=== PATIENT | male | born 1955 | race Caucasian/White ===

== ENCOUNTER 2019-05-27 19:12 | Emergency (ER) | payer OTHER, SELFPAY ==
[2019-05-27 19:22] VITALS: BP 155/74; PULSE 59; RESP 16; TEMP 37.4; O2SAT 100
--- NOTE | 2019-05-27 19:23 | ED.GENADULT ---
HPI - General Adult General Chief complaint: Upper Respiratory Infection Stated complaint: Congestion,Cough Time Seen by Provider: 05/27/19 19:27 Source: patient and RN notes reviewed Mode of arrival: ambulatory Limitations: no limitations History of Present Illness HPI narrative: This is a 63 years old male presents to the office for an evaluation of cough for three days. Cough is getting worse and more deep. He also reports cough when he talks or take a deep breathe. He also reported sinus drainage and feverish feeling. Denies diarrhea or vomiting. Denies sick contact. He does not smoke. He supposed to go to [place] this Monday for vacation and would like to make sure he gets better before then. Related Data Home Medications Medication Instructions Recorded Confirmed atorvastatin 40 mg PO DAILY 05/27/19 05/27/19 losartan 100 mg PO DAILY 05/27/19 05/27/19 metoprolol tartrate 25 mg PO DAILY 05/27/19 05/27/19 Allergies Allergy/AdvReac Type Severity Reaction Status Date / Time No Known Allergies Allergy Mild Verified 06/29/15 14:17 Review of Systems Review of Systems: Narrative: CONSTITUTIONAL: Reports feverish feeling; but not temp at home. ENT: Reports head congestion. Denies sore throat, otalgia. CARDIOVASCULAR: Denies chest pain, palpitation, edema. RESPIRATORY: Denies wheezing. Reports dyspnea with cough GASTROINTESTINAL: Denies abdominal pain, nausea, vomiting, diarrhea. GENITOURINARY: Denies urinary symptoms or discharge SKIN: Denies rash MUSCULOSKELETAL: Denies acute back pain NEUROLOGIC: Denies lightheaded PMFSH Past Medical History Medical History Essential (primary) hypertension Lung nodule Mixed hyperlipidemia AVERY (obstructive sleep apnea) Osteoarthritis Peripheral polyneuropathy Primary osteoarthritis of both knees Symptomatic bradycardia Family History Family History Father Asthma, Onset Age: 75 Social History Social History Smoking status: Never smoker Alcohol intake: never Comments At time of signature, I agree with nursing past medical, surgical, social and family history. There is no relevant family history pertinent to the presenting complaint. Exam Narrative: Exam Narrative: GENERAL: This is a well-nourished, well-developed patient, in no apparent distress. EARS: External ears normal, auditory canals clear and without drainage, TMs normal without perforation. Hearing grossly intact. NOSE: External nose normal with no obvious nasal discharge, nares without redness, no rhinorrhea. THROAT: Mucous membranes moist, posterior pharynx clear. NECK: Neck supple, non-tender without lymphadenopathy, masses or thyromegaly. CARDIOVASCULAR: Regular rate and rhythm without murmurs, gallops, or rubs. RESPIRATORY: Clear to auscultation; except lower lobes noted diminished breath sound possible atelectasis. Breath sounds equal bilaterally. No wheezes, rales, or rhonchi. GASTROINTESTINAL: Abdomen soft, non-tender, nondistended. Bowel sounds are active. No hepato-splenomegaly, or palpable masses. No guarding. SKIN: warm, intact with no suspicious lesions or rash, good texture and turgor. NEURO: awake, alert, and oriented to person, place and time. There were no obvious focal neurologic abnormalities. Steady gait Nasima Coma Scale Eye Opening: Spontaneous 4 Nasima Coma Scale Motor: Obeys Commands 6 [place] Coma Scale Verbal: Oriented 5 Course Vital Signs Vital signs: Vital Signs Temperature 99.4 F 05/27/19 19:22 Pulse Rate 59 L 05/27/19 19:22 Respiratory Rate 16 05/27/19 19:22 Blood Pressure 155/74 H 05/27/19 19:22 Pulse Oximetry 100 05/27/19 19:22 Temperature 99.4 F 05/27/19 19:22 Pulse Rate 59 L 05/27/19 19:22 Respiratory Rate 16 05/27/19 19:22 Blood Pressure 155/74 H 05/27/19 19:22 Pulse Ox
== END 2019-05-27 19:44 | disposition home or self-care (01) ==
PROVIDERS: Emergency Provider Nurse Practitioner; PCP Family Medicine
DX: J06.9 Acute upper respiratory infection, unspecified (principal); I10 Essential (primary) hypertension; G47.33 Obstructive sleep apnea (adult) (pediatric); M19.90 Unspecified osteoarthritis, unspecified site; G62.9 Polyneuropathy, unspecified; E78.2 Mixed hyperlipidemia
CPT/HCPCS: 99213; G0463

== ENCOUNTER 2021-02-15 02:03 | Day surgery (SDC) | payer OTHER, SELFPAY ==
[2021-02-03 09:07] VITALS: BMI 29.2
--- NOTE | 2021-02-12 14:24 | PM.HPGS ---
History of Present Illness History of Present Illness Consent: Risks, benefits, and alternatives have been discussed and questions answered. Patient agrees to proceed with procedure. Chief complaint: hx of colon polyps, family hx of colon ca Narrative: Clement Rios is a 65 year old male Referred for colon cancer screening. He has had a polyp removed in the past Review of Systems Review of Systems: All systems reviewed & are unremarkable except as noted in HPI and below PMFSH Past Medical History Medical History Essential (primary) hypertension Lung nodule Mixed hyperlipidemia AVERY (obstructive sleep apnea) Osteoarthritis Peripheral polyneuropathy Primary osteoarthritis of both knees Symptomatic bradycardia Family History Family History Father Asthma, Onset Age: 75 Social History Social History Smoking status: Never smoker Alcohol intake: current Drinks per week: 10 Alcohol use details: 1-2 drinks most days Substance use: never Substance use type: does not use Living arrangements: with family Spiritual care concerns: No Meds Home Medications and Allergies Home Medications Medication Instructions Recorded Confirmed Type atorvastatin 40 mg PO DAILY 05/27/19 02/15/21 History losartan 100 mg PO DAILY 05/27/19 02/15/21 History metoprolol tartrate 25 mg PO DAILY 05/27/19 02/15/21 History Allergies Allergy/AdvReac Type Severity Reaction Status Date / Time No Known Allergies Allergy Mild Verified 02/15/21 08:59 Exam Resp: Auscultation: clear to auscultation bilaterally Cardio: Rate: regular rate Rhythm: regular rhythm GI: GI Palp: Yes Soft to palpation and No Tenderness to palpation present (GI) Assessment and Plan Assessment and plan (1) Colon cancer screening: Code(s): Z12.11 - Encounter for screening for malignant neoplasm of colon Status: Acute Assessment and Plan: Colonoscopy with possible biopsy or polypectomy or cautery or injection of substances.
[2021-02-15 09:00] VITALS: BP 127/82; PULSE 60; RESP 17; TEMP 36.7; O2SAT 98; BMI 29.5
[2021-02-15] MEDS: LACTATED RINGERS 1,000 ML 150 ML IV CONT (09:05)
--- NOTE | 2021-02-15 09:14 | P.PNAN_ITS ---
Anes - Initial Pre Proc Eval Procedure: Operation Date: 02/15/21 10:00 Proposed Procedures p Screening Colonoscopy - Clement Guerra MD Date/Time: 02/15/21 09:14 Surgeon: Clement Guerra MD Pre Op Diagnosis: hx of colon polyps, family hx of colon ca Patient Data Age: 65 Gender: M Height: 1.8 m Weight: 96.1 kg Last Vital Signs Temp 36.7 C 02/15/21 09:00 Pulse 60 02/15/21 09:00 Resp 17 02/15/21 09:00 BP 127/82 02/15/21 09:00 Pulse Ox 98 02/15/21 09:00 Allergies Allergy/AdvReac Type Severity Reaction Status Date / Time No Known Allergies Allergy Mild Verified 02/15/21 08:59 Home Medications Medication Instructions Recorded Confirmed Type atorvastatin 40 mg PO DAILY 05/27/19 02/15/21 History losartan 100 mg PO DAILY 05/27/19 02/15/21 History metoprolol tartrate 25 mg PO DAILY 05/27/19 02/15/21 History Patient hx anesthesia problems: none Family hx anesthesia problems: none Results Review: All pre-operative results and documents have been reviewed as part of the pre-operative evaluation. [facility] Past Medical History Medical History Essential (primary) hypertension Lung nodule Mixed hyperlipidemia AVERY (obstructive sleep apnea) Osteoarthritis Peripheral polyneuropathy Primary osteoarthritis of both knees Symptomatic bradycardia Family History Family History Father Asthma, Onset Age: 75 Social History Social History Smoking status: Never smoker Alcohol intake: current Drinks per week: 10 Alcohol use details: 1-2 drinks most days Substance use: never Substance use type: does not use Living arrangements: with family Spiritual care concerns: No Anes - Eval Final PreProcedure Day of Procedure 02/15/21 09:14 Patient weight: overweight Heart: regular rate and rhythm Lungs: clear to auscultation Airway: Mallampati scale class II Neurological: alert and oriented Last oral intake: >/= 8 hours ASA classification: III Emergent: no Anesthetic plan: proceed Anesthesia type and monitoring: general GIVS and standard monitoring Results Review: All pre-operative results and documents have been reviewed as part of the pre-operative evaluation. Informed Consent: The patient's anesthetic plan and its attendant risks and benefits were discussed with the patient/family/POA. Questions were solicited and answers provided to the satisfaction of the patient/family/POA.
[2021-02-15 10:05] VITALS: BP 111/52; PULSE 60; RESP 24; O2SAT 97
[2021-02-15 10:15] VITALS: BP 109/62; PULSE 60; RESP 24; O2SAT 94
[2021-02-15 10:25] VITALS: BP 119/69; PULSE 60; RESP 19; O2SAT 96
== END 2021-02-15 10:38 | disposition home or self-care (01) ==
PROVIDERS: PCP Nurse Practitioner; Visit Provider Internal Medicine Gastroenterology
PROC: 0DJD8ZZ Inspection of Lower Intestinal Tract, Via Natural or Artificial Opening Endoscopic (ICD-10-PCS; CPT 45378; principal; 2021-02-15 10:00)
DX: Z12.11 Encounter for screening for malignant neoplasm of colon (principal)
CPT/HCPCS: 45378; J2704; J7120